=== PATIENT | male | born 1945 ===

== ENCOUNTER → 2017-11-08 | Emergency (ER) | payer OTHER ==
[~2017-11-08] VITALS: Ht 182.9 cm; Wt 64.4 kg
[~2017-11-08] MED LIST: ALPHAGAN P5 M2; ASPIR 8181 MG; CALTRATE 600 +1 EACH; CHLORHEXIDINE FL1 ML; HYFIBER WI12 GM/302; LUBRICANT 0.5-1 EACH; MAXIMUM D310000 UNIT; MUCINEX DM1 TAB.SR . PO; OSEL75CA PO; PENICILLIN V P500 MG; PENTOXIFYLLINE400 MG; PROSCAR5 MG; UROXATRAL10 MG; ZOCOR40 MG
== END | disposition home or self-care (01) ==
LOC: ER 20:09
DX: M54.5 Low back pain (principal); M47.896 Other spondylosis, lumbar region

== ENCOUNTER 2018-07-16 15:39 | Emergency (ER) | payer OTHER ==
[~2018-07-16] VITALS: Ht 182.9 cm; Wt 55.3 kg
[2018-07-16] MEDS ORDERED: TAMS0.4C (15:59)
== END 2018-07-16 17:21 | disposition home or self-care (01) ==
LOC: ER 15:39 → EDBD 15:39 → ER 15:42
DX: M62.838 Other muscle spasm (principal)